=== PATIENT | male | born 1970 | race Caucasian/White ===

== ENCOUNTER 2017-11-16 11:47 | Emergency (ER) | payer OTHER ==
[~2017-11-16] VITALS: Ht 177.8 cm; Wt 81.5 kg
[~2017-11-16 11:47] MED LIST: CARB200T PO; CELE20TA PO
[2017-11-16 11:49] VITALS: BP 140/71; PULSE 71; RESP 15; TEMP 98.1; O2SAT 96
--- NOTE | 2017-11-16 12:12 | PD ---
HPI Chief Complaint: Psychiatric Symptoms Time Seen by Provider: 11:59 Travel History International Travel<30 days: No Contact w/Intl Traveler<30days: No Traveled to known affect area: No History of Present Illness HPI 46-year-old male presents to the emergency department with suicidal ideations that have been going on for several weeks. States that he was here approximately 1 month ago was placed on oxygen the carbamazepine and citalopram states this is his decrease his anxiety but has been suicidal. States that he would hang himself. He does have a history of overdose of trazodone and cutting himself. States he does go to [facility] for his mental health. States he used cocaine and he suspected "Moriah" by nasal ingestion. States he does use cocaine and marijuana regularly but does not want to do this anymore. Patient does want to detox. Denies any issues with law enforcement. Denies fever, chills, chest pain, shortness of breath. PFSH Past Medical History Arthritis: No Asthma: No Autoimmune Disease: No Anxiety: Yes Depression: Yes Heart Rhythm Problems: No Cardiovascular Problems: No High Cholesterol: No Chemotherapy: No Chest Pain: No Congestive Heart Failure: No COPD: No Cerebrovascular Accident: No Diabetes: No GERD: No Genitourinary: No Hiatal Hernia: No Immune Disorder: No Kidney Stones: No Musculoskeletal: No Neurologic: No Psychiatric: Yes Reproductive: No Respiratory: No Migraines: No Radiation Therapy: No Seizures: No Sickle Cell Disease: No Sleep Apnea: No Thyroid Disease: No Ulcer: No Past Surgical History Abdominal Surgery: No AICD: No Arteriovenous Shunt: No Cardiac Surgery: No Ear Surgery: No Endocrine Surgery: No Eye Surgery: No Genitourinary Surgery: No Gynecologic Surgery: No Insulin Pump: No Joint Replacement: No Oral Surgery: No Pacemaker: No Thoracic Surgery: No Social History Tobacco Use: Yes Substance Use: Yes (marijuana, cocaine) Allergies-Medications (Allergen,Severity, Reaction): Coded Allergies: No Known Allergies (Unverified , 11/16/17) Reported Meds & Prescriptions Reported Meds & Active Scripts Active Reported Celexa (Citalopram Hydrobromide) 10 Mg Tab 10 Mg PO DAILY Carbamazepine 100 Mg Chew 150 Mg CHEW BID Review of Systems Except as stated in HPI: all other systems reviewed are Neg Physical Exam Narrative GENERAL: WD, WN in NAD SKIN: Focused skin assessment warm/dry. HEAD: Atraumatic. Normocephalic. EYES: Pupils equal and round. No scleral icterus. No injection or drainage. ENT: No nasal bleeding or discharge. Mucous membranes pink and moist. NECK: Trachea midline. No JVD. Lymphadenopathy CARDIOVASCULAR: Regular rate and rhythm. No murmur appreciated. RESPIRATORY: No accessory muscle use. Clear to auscultation. Breath sounds equal bilaterally. GASTROINTESTINAL: Abdomen soft, non-tender, nondistended. MUSCULOSKELETAL: No obvious deformities. No clubbing. No cyanosis. No edema. NEUROLOGICAL: Awake and alert. No obvious cranial nerve deficits. Motor grossly within normal limits. Normal speech. PSYCHIATRIC: Appropriate mood and affect; insight and judgment normal. Data Data Last Documented VS Vital Signs Date Time Temp Pulse Resp B/P (MAP) Pulse Ox O2 Delivery O2 Flow Rate FiO2 11/17/17 10:42 47 16 106/51 (69) 99 Room Air 11/17/17 06:28 98.2 Orders Orders Complete Blood Count With Diff (11/16/17 12:08) Comprehensive Metabolic Panel (11/16/17 12:08) Psych Screen (11/16/17 12:08) Drug Screen, Random Urine (11/16/17 12:08) Diet Regular Basic (11/17/17 Breakfast) Diet Regular Basic (11/17/17 Lunch) Labs Laboratory Tests Test 11/16/17 13:24 11/16/17 18:00 White Blood Count 4.6 TH/MM3 Red Blood Count 4.49 MIL/MM3 Hemoglobin 14.3 GM/DL Hematocrit 41.1 % Mean Corpuscular Volume 91.7 FL Mean Corpuscular Hemoglobin 31.8 PG Mean Corpuscular Hemoglobin Concent 34.7 % Red Cell Distribution Width 14.8 % Platelet Count 128 TH/MM3 Mean Platelet Volume 8.1 FL Neutrophils (%) (Auto) 49.5 % Lymphocytes (%) (Auto) 34.9 % Monocytes (%) (Auto) 9.5 % Eosinophils (%) (Auto) 5.5 % Basophils (%) (Auto) 0.6 % Neutrophils # (Auto) 2.3 TH/MM3 Lymphocytes # (Auto) 1.6 TH/MM3 Monocytes # (Auto) 0.4 TH/MM3 Eosinophils # (Auto) 0.3 TH/MM3 Basophils # (Auto) 0.0 TH/MM3 CBC Comment DIFF FINAL Differential Comment Blood Urea Nitrogen 10 MG/DL Creatinine 1.03 MG/DL Random Glucose 80 MG/DL Total Protein 7.3 GM/DL Albumin 2.7 GM/DL Calcium Level 8.2 MG/DL Alkaline Phosphatase 79 U/L Aspartate Amino Transf (AST/SGOT) 103 U/L Alanine Aminotransferase (ALT/SGPT) 116 U/L Total Bilirubin 0.8 MG/DL Sodium Level 139 MEQ/L Potassium Level 4.0 MEQ/L Chloride Level 105 MEQ/L Carbon Dioxide Level 28.6 MEQ/L Anion Gap 5 MEQ/L Estimat Glomerular Filtration Rate 78 ML/MIN Urine Opiates Screen NEG Urine Barbiturates Screen NEG Urine Amphetamines Screen NEG Urine Benzodiazepines Screen NEG Urine Cocaine Screen POS Urine Cannabinoids Screen POS MDM Medical Decision Making Medical Screen Exam Complete: Yes Emergency Medical Condition: Yes Differential Diagnosis Suicidal ideations, homicidal ideations, depression, malingering Narrative Course 46-year-old male presents to the emergency department with suicidal ideations that have been going on for several weeks. States that he was here approximately 1 month ago was placed on oxygen the carbamazepine and citalopram states this is his decrease his anxiety but has been suicidal. States that he would hang himself. He does have a history of overdose of trazodone and cutting himself. States he does go to [facility] for his mental health. States he used cocaine and he suspected "Moriah" by nasal ingestion. States he does use cocaine and marijuana regularly but does not want to do this anymore. Patient does want to detox. Denies any issues with law enforcement. Denies fever, chills, chest pain, shortness of breath. Vital signs stable. Patient medically cleared to see psych. UDS pending as of transfer to Psych holding. UDS positive for cocaine and cannabinoids, as anticipated. Labs otherwise unremarkable. Diagnosis Primary Impression: Suicidal ideations Condition: Stable Nayla Melgar Nov 16, 2017 12:12
[2017-11-16] MEDS ORDERED: CARB100C CHEW (12:13)
[2017-11-16] MEDS ORDERED: CELE10TA PO (12:13)
[2017-11-16 13:34] LABS: AUTOMATED NEUTROPHIL # 2.3 TH/MM3 (1.8-7.7); BASOPHIL % 0.6 % (0.0-2.0); EOSINOPHIL # 0.3 TH/MM3 (0-0.4); EOSINOPHIL % 5.5 % (0.0-4.0); HEMATOCRIT 41.1 % (39.0-51.0); HEMOGLOBIN 14.3 GM/DL (13.0-17.0); LYMPH % 34.9 % (9.0-44.0); LYMPHOCYTE # 1.6 TH/MM3 (1.0-4.8); MEAN CELL VOLUME 91.7 FL (80.0-100.0); MEAN CORPUSCULAR HEMOGLOBIN 31.8 PG (27.0-34.0); MEAN CORPUSCULAR HGB CONC 34.7 % (32.0-36.0); MEAN PLATELET VOLUME 8.1 FL (7.0-11.0); MONO % 9.5 % (0.0-8.0); MONOCYTE # 0.4 TH/MM3 (0-0.9); NEUT % 49.5 % (16.0-70.0); PLATELET COUNT 128 TH/MM3 (150-450); RED BLOOD COUNT 4.49 MIL/MM3 (4.50-5.90); RED CELL DISTRIBUTION WIDTH 14.8 % (11.6-17.2); WHITE BLOOD COUNT 4.6 TH/MM3 (4.0-11.0)
[2017-11-16 13:58] LABS: ALBUMIN 2.7 GM/DL (3.4-5.0); ALT (GPT) 116 U/L (12-78); AST (GOT) 103 U/L (15-37); BICARBONATE 28.6 MEQ/L (21.0-32.0); BLOOD UREA NITROGEN 10 MG/DL (7-18); CALCIUM 8.2 MG/DL (8.5-10.1); CHLORIDE 105 MEQ/L (98-107); CREATININE 1.03 MG/DL (0.60-1.30); GLOMERULAR FILTRATION RATE 78 ML/MIN (>89); GLUCOSE,RANDOM 80 MG/DL (74-106); SODIUM (NA) 139 MEQ/L (136-145)
[2017-11-16 14:01] LABS: ALKALINE PHOSPHATASE 79 U/L (45-117); TOTAL BILIRUBIN ADULT 0.8 MG/DL (0.2-1.0); TOTAL PROTEIN 7.3 GM/DL (6.4-8.2)
[2017-11-16 23:15] VITALS: BP 106/49; PULSE 50; RESP 18; TEMP 99.2; O2SAT 100
[2017-11-17 06:28] VITALS: BP 102/55; PULSE 50; RESP 18; TEMP 98.2; O2SAT 96
[2017-11-17 10:42] VITALS: BP 106/51; PULSE 47; RESP 16; O2SAT 99
--- NOTE | 2017-11-17 12:28 | PD ---
Physical Exam Date Seen by Provider: Nov 17, 2017 Time Seen by Provider: 12:27 Narrative 46-year-old male previously medically cleared for psychiatric evaluation was seen by psychiatric staff and is felt to need transfer to the [facility] for further treatment. Patient remains medically stable at this time Data Data Last Documented VS Vital Signs Date Time Temp Pulse Resp B/P (MAP) Pulse Ox O2 Delivery O2 Flow Rate FiO2 11/17/17 10:42 47 16 106/51 (69) 99 Room Air 11/17/17 06:28 98.2 Orders Orders Complete Blood Count With Diff (11/16/17 12:08) Comprehensive Metabolic Panel (11/16/17 12:08) Psych Screen (11/16/17 12:08) Drug Screen, Random Urine (11/16/17 12:08) Diet Regular Basic (11/17/17 Breakfast) Diet Regular Basic (11/17/17 Lunch) Labs Laboratory Tests Test 11/16/17 13:24 11/16/17 18:00 White Blood Count 4.6 TH/MM3 Red Blood Count 4.49 MIL/MM3 Hemoglobin 14.3 GM/DL Hematocrit 41.1 % Mean Corpuscular Volume 91.7 FL Mean Corpuscular Hemoglobin 31.8 PG Mean Corpuscular Hemoglobin Concent 34.7 % Red Cell Distribution Width 14.8 % Platelet Count 128 TH/MM3 Mean Platelet Volume 8.1 FL Neutrophils (%) (Auto) 49.5 % Lymphocytes (%) (Auto) 34.9 % Monocytes (%) (Auto) 9.5 % Eosinophils (%) (Auto) 5.5 % Basophils (%) (Auto) 0.6 % Neutrophils # (Auto) 2.3 TH/MM3 Lymphocytes # (Auto) 1.6 TH/MM3 Monocytes # (Auto) 0.4 TH/MM3 Eosinophils # (Auto) 0.3 TH/MM3 Basophils # (Auto) 0.0 TH/MM3 CBC Comment DIFF FINAL Differential Comment Blood Urea Nitrogen 10 MG/DL Creatinine 1.03 MG/DL Random Glucose 80 MG/DL Total Protein 7.3 GM/DL Albumin 2.7 GM/DL Calcium Level 8.2 MG/DL Alkaline Phosphatase 79 U/L Aspartate Amino Transf (AST/SGOT) 103 U/L Alanine Aminotransferase (ALT/SGPT) 116 U/L Total Bilirubin 0.8 MG/DL Sodium Level 139 MEQ/L Potassium Level 4.0 MEQ/L Chloride Level 105 MEQ/L Carbon Dioxide Level 28.6 MEQ/L Anion Gap 5 MEQ/L Estimat Glomerular Filtration Rate 78 ML/MIN Urine Opiates Screen NEG Urine Barbiturates Screen NEG Urine Amphetamines Screen NEG Urine Benzodiazepines Screen NEG Urine Cocaine Screen POS Urine Cannabinoids Screen POS MDM Medical Record Reviewed: Yes Supervised Visit with TINY: Yes Narrative Course 46-year-old male previously medically cleared for psychiatric evaluation was seen by psychiatric staff and is felt to need transfer to the [facility] for further treatment. Patient remains medically stable at this time Diagnosis Primary Impression: Suicidal ideations Disposition: 70 TRANSFER TO OTHER FACILITY Condition: Stable Kehinde Hernández Nov 17, 2017 12:28
== END 2017-11-17 17:00 | disposition short-term general hospital (02) ==
LOC: NEPC 11:47 → NEPJ 11-17 17:00
DX: R45.851 Suicidal ideations (principal); F41.9 Anxiety disorder, unspecified; F12.90 Cannabis use, unspecified, uncomplicated; F14.90 Cocaine use, unspecified, uncomplicated; Z72.0 Tobacco use; Z79.899 Other long term (current) drug therapy
CPT/HCPCS: 80053; 80307; 85025; 99285

== ENCOUNTER 2018-01-06 19:32 | Emergency (ER) | payer SELFPAY ==
[~2018-01-06 19:32] MED LIST changes: +CARB100C CHEW; -CARB200T PO; +CELE10TA PO; -CELE20TA PO
[2018-01-06 20:09] VITALS: BP 104/51; PULSE 54; RESP 16; TEMP 98.9; O2SAT 98
[2018-01-06 21:10] LABS: AUTOMATED NEUTROPHIL # 2.4 TH/MM3 (1.8-7.7); BASOPHIL % 0.4 % (0.0-2.0); EOSINOPHIL # 0.2 TH/MM3 (0-0.4); EOSINOPHIL % 4.1 % (0.0-4.0); HEMATOCRIT 41.1 % (39.0-51.0); HEMOGLOBIN 14.2 GM/DL (13.0-17.0); LYMPH % 34.8 % (9.0-44.0); LYMPHOCYTE # 1.7 TH/MM3 (1.0-4.8); MEAN CORPUSCULAR HEMOGLOBIN 31.7 PG (27.0-34.0); MEAN CORPUSCULAR HGB CONC 34.5 % (32.0-36.0); MEAN PLATELET VOLUME 8.7 FL (7.0-11.0); MONO % 10.7 % (0.0-8.0); MONOCYTE # 0.5 TH/MM3 (0-0.9); PLATELET COUNT 136 TH/MM3 (150-450); RED BLOOD COUNT 4.47 MIL/MM3 (4.50-5.90); RED CELL DISTRIBUTION WIDTH 13.7 % (11.6-17.2); WHITE BLOOD COUNT 4.8 TH/MM3 (4.0-11.0)
[2018-01-06 21:40] LABS: ALBUMIN 3.1 GM/DL (3.4-5.0); AST (GOT) 101 U/L (15-37); BICARBONATE 28.9 MEQ/L (21.0-32.0); BLOOD UREA NITROGEN 11 MG/DL (7-18); CALCIUM 9.1 MG/DL (8.5-10.1); CHLORIDE 104 MEQ/L (98-107); GLOMERULAR FILTRATION RATE 65 ML/MIN (>89); GLUCOSE,RANDOM 91 MG/DL (74-106); SODIUM (NA) 140 MEQ/L (136-145)
[2018-01-06 21:49] LABS: ALKALINE PHOSPHATASE 79 U/L (45-117); ALT (GPT) 102 U/L (12-78); TOTAL BILIRUBIN ADULT 0.5 MG/DL (0.2-1.0)
--- NOTE | 2018-01-07 02:09 | PD ---
HPI Chief Complaint: Psychiatric Symptoms Time Seen by Provider: 02:07 Travel History International Travel<30 days: No Contact w/Intl Traveler<30days: No Traveled to known affect area: No History of Present Illness HPI 47-year-old male presents emergency department voluntarily for psychiatric evaluation. Patient states that he recently relapsed on cocaine. He last used this morning. He states that he has been depressed and feeling hopeless. Has a history of depression and states he takes his medication as prescribed. He denies any other acute medical needs at this time. PFSH Past Medical History Arthritis: No Asthma: No Autoimmune Disease: No Bipolar Disorder: Yes Anxiety: Yes Depression: Yes Heart Rhythm Problems: No Cardiovascular Problems: No High Cholesterol: No Chemotherapy: No Chest Pain: No Congestive Heart Failure: No COPD: No Cerebrovascular Accident: No Diabetes: No GERD: No Genitourinary: No Hiatal Hernia: No Immune Disorder: No Kidney Stones: No Musculoskeletal: No Neurologic: No Psychiatric: Yes (bipolar, ) Reproductive: No Respiratory: No Migraines: No Radiation Therapy: No Seizures: No Sickle Cell Disease: No Sleep Apnea: No Thyroid Disease: No Ulcer: No Past Surgical History Abdominal Surgery: No AICD: No Arteriovenous Shunt: No Cardiac Surgery: No Ear Surgery: No Endocrine Surgery: No Eye Surgery: No Genitourinary Surgery: Yes (testicular torsion ) Gynecologic Surgery: No Insulin Pump: No Joint Replacement: No Oral Surgery: No Pacemaker: No Thoracic Surgery: No Tonsillectomy: Yes Other Surgery: Yes Social History Alcohol Use: Yes (rarely) Tobacco Use: Yes Substance Use: Yes (marijuana, cocaine, chelsea) Allergies-Medications (Allergen,Severity, Reaction): Coded Allergies: No Known Allergies (Unverified , 11/16/17) Reported Meds & Prescriptions Reported Meds & Active Scripts Active Reported Celexa (Citalopram Hydrobromide) 10 Mg Tab 10 Mg PO DAILY Carbamazepine 100 Mg Chew 150 Mg CHEW BID Review of Systems Except as stated in HPI: all other systems reviewed are Neg Physical Exam Narrative GENERAL: Well-nourished male patient, in no acute distress SKIN: Focused skin assessment warm/dry. HEAD: Atraumatic. Normocephalic. EYES: Pupils equal and round. No scleral icterus. No injection or drainage. ENT: No nasal bleeding or discharge. Mucous membranes pink and moist. NECK: Trachea midline. No JVD. CARDIOVASCULAR: Regular rate and rhythm. No murmur appreciated. RESPIRATORY: No accessory muscle use. Clear to auscultation. Breath sounds equal bilaterally. GASTROINTESTINAL: Abdomen soft, non-tender, nondistended. Hepatic and splenic margins not palpable. MUSCULOSKELETAL: No obvious deformities. No clubbing. No cyanosis. No edema. NEUROLOGICAL: Awake and alert. No obvious cranial nerve deficits. Motor grossly within normal limits. Normal speech. Data Data Last Documented VS Vital Signs Date Time Temp Pulse Resp B/P (MAP) Pulse Ox O2 Delivery O2 Flow Rate FiO2 01/07/18 03:22 64 18 112/62 (79) 98 Room Air 01/06/18 20:09 98.9 Orders Orders Complete Blood Count With Diff (01/06/18 20:11) Comprehensive Metabolic Panel (01/06/18 20:11) Thyroid Stimulating Hormone (01/06/18 20:11) Psych Screen (01/06/18 20:11) Drug Screen, Random Urine (01/06/18 20:11) Alcohol (Ethanol) (01/06/18 20:11) Labs Laboratory Tests Test 01/06/18 20:41 01/07/18 02:40 White Blood Count 4.8 TH/MM3 Red Blood Count 4.47 MIL/MM3 Hemoglobin 14.2 GM/DL Hematocrit 41.1 % Mean Corpuscular Volume 92.0 FL Mean Corpuscular Hemoglobin 31.7 PG Mean Corpuscular Hemoglobin Concent 34.5 % Red Cell Distribution Width 13.7 % Platelet Count 136 TH/MM3 Mean Platelet Volume 8.7 FL Neutrophils (%) (Auto) 50.0 % Lymphocytes (%) (Auto) 34.8 % Monocytes (%) (Auto) 10.7 % Eosinophils (%) (Auto) 4.1 % Basophils (%) (Auto) 0.4 % Neutrophils # (Auto) 2.4 TH/MM3 Lymphocytes # (Auto) 1.7 TH/MM3 Monocytes # (Auto) 0.5 TH/MM3 Eosinophils # (Auto) 0.2 TH/MM3 Basophils # (Auto) 0.0 TH/MM3 CBC Comment DIFF FINAL Differential Comment Blood Urea Nitrogen 11 MG/DL Creatinine 1.20 MG/DL Random Glucose 91 MG/DL Total Protein 8.0 GM/DL Albumin 3.1 GM/DL Calcium Level 9.1 MG/DL Alkaline Phosphatase 79 U/L Aspartate Amino Transf (AST/SGOT) 101 U/L Alanine Aminotransferase (ALT/SGPT) 102 U/L Total Bilirubin 0.5 MG/DL Sodium Level 140 MEQ/L Potassium Level 4.1 MEQ/L Chloride Level 104 MEQ/L Carbon Dioxide Level 28.9 MEQ/L Anion Gap 7 MEQ/L Estimat Glomerular Filtration Rate 65 ML/MIN Thyroid Stimulating Hormone 3rd Gen 0.646 uIU/ML Ethyl Alcohol Level LESS THAN 3 MG/DL Urine Opiates Screen NEG Urine Barbiturates Screen NEG Urine Amphetamines Screen NEG Urine Benzodiazepines Screen NEG Urine Cocaine Screen POS Urine Cannabinoids Screen POS MDM Medical Decision Making Medical Screen Exam Complete: Yes Emergency Medical Condition: Yes Medical Record Reviewed: Yes Differential Diagnosis Mood disorder versus adjustment reaction disorder versus polysubstance abuse Narrative Course 47-year-old male presents to the emergency department voluntarily for psychiatric evaluation. He also relapsed on cocaine this morning. Patient reports feeling depressed with suicidal thoughts. He has no active plan. Laboratory Tests Test 01/06/18 20:41 01/07/18 02:40 White Blood Count 4.8 TH/MM3 Red Blood Count 4.47 MIL/MM3 Hemoglobin 14.2 GM/DL Hematocrit 41.1 % Mean Corpuscular Volume 92.0 FL Mean Corpuscular Hemoglobin 31.7 PG Mean Corpuscular Hemoglobin Concent 34.5 % Red Cell Distribution Width 13.7 % Platelet Count 136 TH/MM3 Mean Platelet Volume 8.7 FL Neutrophils (%) (Auto) 50.0 % Lymphocytes (%) (Auto) 34.8 % Monocytes (%) (Auto) 10.7 % Eosinophils (%) (Auto) 4.1 % Basophils (%) (Auto) 0.4 % Neutrophils # (Auto) 2.4 TH/MM3 Lymphocytes # (Auto) 1.7 TH/MM3 Monocytes # (Auto) 0.5 TH/MM3 Eosinophils # (Auto) 0.2 TH/MM3 Basophils # (Auto) 0.0 TH/MM3 CBC Comment DIFF FINAL Differential Comment Blood Urea Nitrogen 11 MG/DL Creatinine 1.20 MG/DL Random Glucose 91 MG/DL Total Protein 8.0 GM/DL Albumin 3.1 GM/DL Calcium Level 9.1 MG/DL Alkaline Phosphatase 79 U/L Aspartate Amino Transf (AST/SGOT) 101 U/L Alanine Aminotransferase (ALT/SGPT) 102 U/L Total Bilirubin 0.5 MG/DL Sodium Level 140 MEQ/L Potassium Level 4.1 MEQ/L Chloride Level 104 MEQ/L Carbon Dioxide Level 28.9 MEQ/L Anion Gap 7 MEQ/L Estimat Glomerular Filtration Rate 65 ML/MIN Thyroid Stimulating Hormone 3rd Gen 0.646 uIU/ML Ethyl Alcohol Level LESS THAN 3 MG/DL Urine Opiates Screen NEG Urine Barbiturates Screen NEG Urine Amphetamines Screen NEG Urine Benzodiazepines Screen NEG Urine Cocaine Screen POS Urine Cannabinoids Screen POS Lab work is without acute concern. Patient is medically cleared to undergo psychiatric screening for further evaluation and disposition. Diagnosis Primary Impression: Adjustment disorder with depressed mood Additional Impression: Polysubstance abuse Condition: Stable Sienna Grover Jan 07, 2018 02:09
[2018-01-07 03:22] VITALS: BP 112/62; PULSE 64; RESP 18; O2SAT 98
--- NOTE | 2018-01-07 07:29 | PD ---
Physical Exam Time Seen by Provider: 07:[address] Harrison has evaluated the patient and cleared the patient for discharge. Data Data Last Documented VS Vital Signs Date Time Temp Pulse Resp B/P (MAP) Pulse Ox O2 Delivery O2 Flow Rate FiO2 01/07/18 03:22 64 18 112/62 (79) 98 Room Air 01/06/18 20:09 98.9 Orders Orders Complete Blood Count With Diff (01/06/18 20:11) Comprehensive Metabolic Panel (01/06/18 20:11) Thyroid Stimulating Hormone (01/06/18 20:11) Psych Screen (01/06/18 20:11) Drug Screen, Random Urine (01/06/18 20:11) Alcohol (Ethanol) (01/06/18 20:11) Labs Laboratory Tests Test 01/06/18 20:41 01/07/18 02:40 White Blood Count 4.8 TH/MM3 Red Blood Count 4.47 MIL/MM3 Hemoglobin 14.2 GM/DL Hematocrit 41.1 % Mean Corpuscular Volume 92.0 FL Mean Corpuscular Hemoglobin 31.7 PG Mean Corpuscular Hemoglobin Concent 34.5 % Red Cell Distribution Width 13.7 % Platelet Count 136 TH/MM3 Mean Platelet Volume 8.7 FL Neutrophils (%) (Auto) 50.0 % Lymphocytes (%) (Auto) 34.8 % Monocytes (%) (Auto) 10.7 % Eosinophils (%) (Auto) 4.1 % Basophils (%) (Auto) 0.4 % Neutrophils # (Auto) 2.4 TH/MM3 Lymphocytes # (Auto) 1.7 TH/MM3 Monocytes # (Auto) 0.5 TH/MM3 Eosinophils # (Auto) 0.2 TH/MM3 Basophils # (Auto) 0.0 TH/MM3 CBC Comment DIFF FINAL Differential Comment Blood Urea Nitrogen 11 MG/DL Creatinine 1.20 MG/DL Random Glucose 91 MG/DL Total Protein 8.0 GM/DL Albumin 3.1 GM/DL Calcium Level 9.1 MG/DL Alkaline Phosphatase 79 U/L Aspartate Amino Transf (AST/SGOT) 101 U/L Alanine Aminotransferase (ALT/SGPT) 102 U/L Total Bilirubin 0.5 MG/DL Sodium Level 140 MEQ/L Potassium Level 4.1 MEQ/L Chloride Level 104 MEQ/L Carbon Dioxide Level 28.9 MEQ/L Anion Gap 7 MEQ/L Estimat Glomerular Filtration Rate 65 ML/MIN Thyroid Stimulating Hormone 3rd Gen 0.646 uIU/ML Ethyl Alcohol Level LESS THAN 3 MG/DL Urine Opiates Screen NEG Urine Barbiturates Screen NEG Urine Amphetamines Screen NEG Urine Benzodiazepines Screen NEG Urine Cocaine Screen POS Urine Cannabinoids Screen POS MDM Supervised Visit with TINY: No Narrative Course Dr. Harrison has evaluated the patient and cleared the patient for discharge. Patient contracts safety. Denies suicidal or homicidal ideations. Patient will be provided community resource packet to /[facility] for follow-up. Has friends and family for support. Patient was medically cleared by alternate provider prior to psych screening. Patient has been evaluated by psychiatry and and is now cleared for discharge. Diagnosis Primary Impression: Adjustment disorder with depressed mood Additional Impression: Polysubstance abuse Referrals: [facility] (Out patient) [facility] Primary Care Physician Psychiatrist [facility] Patient Instructions: General Instructions, Mood Disorders (ED), Polysubstance Abuse (ED) Additional Instruction: Contract safety to your self and others Follow-up with psychiatry Follow-up with primary care provider Follow-up with [facility] Return to the emergency department immediately with worsening of symptoms Med/Other Pt SpecificInfo: No Change to Meds, No Meds Exist/No RX given Disposition: 01 DISCHARGE HOME Condition: Stable Sachi Fox Jan 07, 2018 07:29
--- NOTE | 2018-01-07 07:34 | PD.PSY.CON ---
Provisional Diagnosis Admission Date Date of consultation is 01/07/18 [place] I. 1. Adjustment disorder with depressed mood Suspect malingering for skilled nursing 2. Polysubstance abuse [place] II. Deferred History of Present Illness Service Psychiatry Consult Requested By Emergency department Reason for Consult Voluntary psychiatric evaluation Primary Care Physician No Primary Care Physician HPI Mr. Donaldson is a 47-year-old male with a reported history of bipolar disorder, depression and PTSD who presents to the emergency department voluntarily for psychiatric evaluation. Psychiatric screening note reviewed. I see that the patient was recently evicted from [employer] [facility] [employer] reportedly because he could not find a job but perhaps also because he continues to use cocaine and cannabis. Reviewing the electronic medical record, I note that the patient was admitted under Dr. Licona in September of this year. Patient seen and examined. Chart reviewed. Case discussed with staff in the ED. There has been no evidence of behavioral disturbance, no suicidal or homicidal behavior while the patient has been under observation in the emergency department. On my examination this morning, the patient tells me "I need to get somewhere safe for a day or 2." He is asking about getting some food this morning. He says "I have to survive. I have to have resources." He reports that he has stopped taking his psychotropic medications a few weeks ago. Presently the patient is somewhat dysphoric, although I can elicit no symptoms of matt emperatriz depressive disorder. There are no hypomanic or manic symptoms. He denies any suicidal or homicidal ideation, intent or plan presently and contracts for safety. He does report a history of occasional violent thoughts with no specific victim in the past but not presently. He understands that violent behavior is illegal and would result in legal sanction. He expresses future orientation and says "I want my life to change." He denies any audiovisual hallucinations. I can elicit no delusional material. The remainder of the psychiatric ROS is negative. The patient has no acute physical complaints. Past psychiatric history: The patient reports previous diagnoses as noted above. He has not followed up with outpatient psychiatry because "it takes so long." [facility]. He reports 2 previous suicide attempts by overdose and cutting several years ago. He denies a history of violent behavior. Family history: The patient denies a family history of serious mental illness or suicide. He does report that substance use issues run in the family. Chemical dependency history: The patient admits to ongoing use of crack cocaine as well as cannabis. He reports that he uses "very little" alcohol. Social history: The patient is presently without stable housing. He is with 3 children. He does have limited contact with his youngest daughter. He graduated high school. He served in the [employer] and had a general under honorable discharge. He does have a history of drug crime but denies any history of violent crime. No reported active legal issues. He denies any access to guns or firearms. He describes himself as a Taoist but says that he is more into spirituality. Review of Systems Except as stated in HPI: all other systems reviewed are Neg Past Family Social History Coded Allergies: No Known Allergies (Unverified , 11/16/17) Past Medical History See electronic medical record Reported Medications Citalopram (Celexa) 10 Mg Tab, 10 MG PO DAILY for Control Depression, #30 TAB 0 Refills 11/16/17 Carbamazepine (Carbamazepine) 100 Mg Chew, 150 MG CHEW BID, #90 TAB 0 Refills 11/16/17 Patient's Strengths (min. 2) Attending to basic needs. Able to access clinical care. Physical Exam Physical exam was completed by ED provider. On my examination today, the patient appears to be in no acute physical distress. No motoric abnormalities noted. No signs of intoxication or withdrawal noted. Labs and vitals reviewed: Vital Signs Vital Signs Date Time Temp Pulse Resp B/P (MAP) Pulse Ox O2 Delivery O2 Flow Rate FiO2 01/07/18 03:22 64 18 112/62 (79) 98 Room Air 01/06/18 20:09 98.9 Lab Results Test 01/06/18 20:41 01/07/18 02:40 White Blood Count 4.8 TH/MM3 Red Blood Count 4.47 MIL/MM3 Hemoglobin 14.2 GM/DL Hematocrit 41.1 % Mean Corpuscular Volume 92.0 FL Mean Corpuscular Hemoglobin 31.7 PG Mean Corpuscular Hemoglobin Concent 34.5 % Red Cell Distribution Width 13.7 % Platelet Count 136 TH/MM3 Mean Platelet Volume 8.7 FL Neutrophils (%) (Auto) 50.0 % Lymphocytes (%) (Auto) 34.8 % Monocytes (%) (Auto) 10.7 % Eosinophils (%) (Auto) 4.1 % Basophils (%) (Auto) 0.4 % Neutrophils # (Auto) 2.4 TH/MM3 Lymphocytes # (Auto) 1.7 TH/MM3 Monocytes # (Auto) 0.5 TH/MM3 Eosinophils # (Auto) 0.2 TH/MM3 Basophils # (Auto) 0.0 TH/MM3 CBC Comment DIFF FINAL Differential Comment Blood Urea Nitrogen 11 MG/DL Creatinine 1.20 MG/DL Random Glucose 91 MG/DL Total Protein 8.0 GM/DL Albumin 3.1 GM/DL Calcium Level 9.1 MG/DL Alkaline Phosphatase 79 U/L Aspartate Amino Transf (AST/SGOT) 101 U/L Alanine Aminotransferase (ALT/SGPT) 102 U/L Total Bilirubin 0.5 MG/DL Sodium Level 140 MEQ/L Potassium Level 4.1 MEQ/L Chloride Level 104 MEQ/L Carbon Dioxide Level 28.9 MEQ/L Anion Gap 7 MEQ/L Estimat Glomerular Filtration Rate 65 ML/MIN Thyroid Stimulating Hormone 3rd Gen 0.646 uIU/ML Ethyl Alcohol Level LESS THAN 3 MG/DL Urine Opiates Screen NEG Urine Barbiturates Screen NEG Urine Amphetamines Screen NEG Urine Benzodiazepines Screen NEG Urine Cocaine Screen POS Urine Cannabinoids Screen POS Mental Status Examination Appearance: Appropriate Consciousness: Alert Orientation: x4 Motor Activity: Other (No motor abnormalities noted) Speech: Unremarkable Language: Adequate Fund of Knowledge: Adequate Attention and Concentration: Adequate Memory: Unremarkable Mood: Appropriate, Other (Mildly dysphoric, not severely depressed) Affect: Appropriate Thought Process & Associations: Intact, Logical, Goal directed, Linear Thought Content: Appropriate Hallucination Type: None Delusion Type: None Suicidal Ideation: No Suicidal Plan: No Suicidal Intention: No Homicidal Ideation: No Homicidal Plan: No Homicidal Intention: No Insight: Adequate Judgment: Adequate Assessment & Plan Problem List: (1) Adjustment disorder with depressed mood ICD Codes: F43.21 - Adjustment disorder with depressed mood (2) Polysubstance abuse ICD Codes: F19.10 - Other psychoactive substance abuse, uncomplicated Assessment & Plan This is a 47-year-old male with psychiatric history as detailed above who presents voluntarily seeking psychiatric evaluation. On my examination this morning, the patient seems primarily concerned with "get[ting] somewhere to stay for a day or 2." Malingering for skilled nursing is suspected. He presently denies suicidal or homicidal ideation. There is no evidence of self-care deficit. There is no evidence of unstable mental illness as defined under the [place] act in this patient at this time. He does not presently meet criteria for inpatient psychiatric hospitalization. I do suspect that there is a component of malingering for skilled nursing, as noted above. As a result, it is possible that the patient may re-present with psychiatric symptoms or even make some sort of gesture to obtain the skilled nursing he desires. However, this is not a valid reason to retain the patient now, and in fact in this clinician's judgement it would be counter-therapeutic to do so. He would very much benefit from outpatient chemical dependency and mental health treatment, and I have encouraged him to pursue these. The nurse will provide the appropriate referrals. I have counseled the patient to abstain from substances of abuse. I have counseled the patient to return to the psychiatric emergency room for any concerning psychiatric symptoms. The patient is otherwise psychiatrically clear for discharge from the ED. Thank you very much for this consultation. Deuce Aquino MD Jan 07, 2018 07:34
== END 2018-01-07 07:48 | disposition home or self-care (01) ==
LOC: NEPD 19:32
DX: F43.21 Adjustment disorder with depressed mood (principal); F14.10 Cocaine abuse, uncomplicated; F12.10 Cannabis abuse, uncomplicated; F31.9 Bipolar disorder, unspecified; F41.9 Anxiety disorder, unspecified; Z79.899 Other long term (current) drug therapy; Z72.0 Tobacco use
CPT/HCPCS: 80053; 80307; 84443; 85025; 99283